=== PATIENT | female | born 1965 | race Caucasian/White ===

== ENCOUNTER 2017-08-28 08:41 | Emergency (ER) | payer SELFPAY ==
[2017-08-28 08:44] VITALS: BP 130/69; PULSE 70; RESP 16; TEMP 97.7; O2SAT 98
[2017-08-28] MEDS ORDERED: DIAZ5TAB PO (08:56)
[2017-08-28] MEDS ORDERED: ATOR40TA16 PO (08:56)
[2017-08-28] MEDS ORDERED: METO50TA PO (08:56)
[2017-08-28] MEDS ORDERED: LEVO50TA4 PO (08:56)
[2017-08-28] MEDS ORDERED: TOPI50TA7 PO (08:56)
[2017-08-28] MEDS ORDERED: TRAZ1TAB14 PO (08:56)
[2017-08-28] MEDS ORDERED: DULO1CAP3 PO (08:56)
[2017-08-28] MEDS ORDERED: METF1000 PO (08:56)
[2017-08-28] MEDS ORDERED: BUTA1CAP5 PO (08:56)
[2017-08-28] MEDS ORDERED: CYCL10TA PO (08:56)
[2017-08-28] MEDS ORDERED: ASPI-516 CHEW (08:56)
[2017-08-28] MEDS ORDERED: LINA290C PO (08:56)
[2017-08-28] MEDS ORDERED: MELO15TA20 PO (09:15)
[2017-08-28] MEDS ORDERED: ROBA500T PO (09:15)
[2017-08-28] MEDS ORDERED: ORPHENADRINE INJ 60 MG/2 ML AMP IM ONE (09:15)
[2017-08-28] MEDS ORDERED: KETOROLAC TROMETHAMINE 60 MG/2 ML (IM) VIAL IM ONE (09:15)
--- NOTE | 2017-08-28 09:15 | PD ---
HPI Chief Complaint: Back/ Neck Pain or Injury Time Seen by Provider: 09:05 Travel History International Travel<30 days: No Contact w/Intl Traveler<30days: No Traveled to known affect area: No History of Present Illness HPI 52-year-old female here with back pain. Patient reports history of chronic low back pain. She recently moved from [place] and has been cleaning her new apartment carrying heavy boxes. She reports pain and "spasming" to her entire back times one day. Pain is worse with movement and palpation of the back and relieved with rest. She denies fever, chills, incontinence, saddle anesthesia, paresthesia or weakness of the extremities. She denies chest pain, shortness of breath, abdominal pain, nausea vomiting diarrhea. She reports this pain is similar to her chronic back pain just more intense. She was previously on oxycodone and cyclobenzaprine for chronic pain control. Since moving to [place] she has not been on her medications for several months. Symptoms severity is moderate. No alleviating factors. PFSH Past Medical History High Cholesterol: Yes Cerebrovascular Accident: Yes Diabetes: Yes Patient Takes Glucophage: Yes Hypertension: Yes Thyroid Disease: Yes ?: Not Tubal Ligation: Yes Past Surgical History Section: Yes Social History Alcohol Use: No Tobacco Use: Yes (1/2PPD) Substance Use: No Allergies-Medications (Allergen,Severity, Reaction): Coded Allergies: No Known Allergies (Unverified , 08/28/17) Reported Meds & Prescriptions Reported Meds & Active Scripts Active Robaxin (Methocarbamol) 500 Mg Tab 500 Mg PO TID Meloxicam 15 Mg Tab 15 Mg PO DAILY Reported Atorvastatin (Atorvastatin Calcium) 40 Mg Tab 40 Mg PO HS Duloxetine DR (Duloxetine HCl) 60 Mg Capdr 60 Mg PO DAILY Mpxjeysqlk-Wxwpwbkhxmfzb-Icdjlczz 50-300-40 Mg Cap 1 Cap PO Q4H PRN Do not exceed 6 capsules/day. Aspirin 81 Mg Chew 81 Mg CHEW DAILY Flexeril (Cyclobenzaprine HCl) 10 Mg Tab 10 Mg PO TID Metformin (Metformin HCl) 1,000 Mg Tab 1,000 Mg PO BIDPC Metoprolol Tartrate 50 Mg Tab 50 Mg PO BID Trazodone (Trazodone HCl) 150 Mg Tablet 150 Mg PO HS Diazepam 5 Mg Tab 5 Mg PO BID PRN Linzess (Linaclotide) 290 Mcg Cap 290 Mcg PO DAILY Levothyroxine (Levothyroxine Sodium) 50 Mcg Tab 50 Mcg PO DAILY Topiramate 50 Mg Tab 100 Mg PO DAILY Review of Systems Except as stated in HPI: all other systems reviewed are Neg General / Constitutional: No: Fever Physical Exam Narrative GENERAL: Alert female in no distress. Patient ambulating in the emergency department with a steady gait. SKIN: Warm and dry. HEAD: Normocephalic. EYES: No scleral icterus. No injection or drainage. NECK: Supple, trachea midline. No JVD or lymphadenopathy. CARDIOVASCULAR: Regular rate and rhythm without murmurs, gallops, or rubs. RESPIRATORY: Breath sounds equal bilaterally. No accessory muscle use. GASTROINTESTINAL: Abdomen soft, non-tender, nondistended. MUSCULOSKELETAL: No cyanosis, or edema. Normal strength and sensation of the lower extremities. Dorsiflex and plantarflex intact. 2+ dorsal pedis pulse. BACK: Tenderness to the thoracic and lumbar paraspinous musculature. No point tenderness of the midline spine. Without obvious deformity. No CVA tenderness. Data Data Last Documented VS Vital Signs Date Time Temp Pulse Resp B/P (MAP) Pulse Ox O2 Delivery O2 Flow Rate FiO2 08/28/17 09:26 08/28/17 08:44 97.7 70 16 98 Room Air Orders Orders Ed Discharge Order (08/28/17 09:11) Ketorolac Inj (Toradol Inj) (08/28/17 09:15) Orphenadrine Inj (Norflex Inj) (08/28/17 09:15) MDM Medical Decision Making Medical Screen Exam Complete: Yes Emergency Medical Condition: Yes Differential Diagnosis acute on chronic back pain, strain/sprain, unlikely spine fracture Narrative Course 52 year old female here with back pain after cleaning her house. She has a history of chronic back pain. On exam she has tenderness to the paraspinous musculature of the back. No point tenderness of the midline spine. Patient was given a shot of Toradol and Norflex. She reports symptom improvement after medications. Discharged home with NSAIDs and muscle relaxers. Return precautions were discussed. Diagnosis Primary Impression: Back pain Qualified Codes: M54.9 - Dorsalgia, unspecified Referrals: Primary Care Physician Scripts Methocarbamol (Robaxin) 500 Mg Tab 500 MG PO TID for Muscle Spasm, #15 TAB 0 Refills Prov: Maddie Rose 08/28/17 Meloxicam (Meloxicam) 15 Mg Tab 15 MG PO DAILY for Arthritis Pain, #30 TAB 0 Refills Prov: Maddie Rose 08/28/17 Disposition: 01 DISCHARGE HOME Condition: Stable Maddie Rose Aug 28, 2017 09:15
== END 2017-08-28 09:40 | disposition home or self-care (01) ==
LOC: PHEFT 08:41
DX: M54.5 Low back pain (principal); G89.29 Other chronic pain; E11.9 Type 2 diabetes mellitus without complications; E78.00 Pure hypercholesterolemia, unspecified; I10 Essential (primary) hypertension; F17.200 Nicotine dependence, unspecified, uncomplicated; Z79.84 Long term (current) use of oral hypoglycemic drugs
CPT/HCPCS: 96372; 99284; J1885; J2360

== ENCOUNTER 2017-09-07 13:30 | Emergency (ER) | payer SELFPAY ==
[~2017-09-07 13:30] MED LIST: ASPI-516 CHEW; ATOR40TA16 PO; BUTA1CAP5 PO; CYCL10TA PO; DIAZ5TAB PO; DULO1CAP3 PO; LEVO50TA4 PO; LINA290C PO; MELO15TA20 PO; METF1000 PO; METO50TA PO; ROBA500T PO; TOPI50TA7 PO; TRAZ1TAB14 PO
[2017-09-07 13:36] VITALS: BP 143/79; PULSE 72; RESP 22; TEMP 97.6; O2SAT 99
[2017-09-07] MEDS ORDERED: MELO15TA20 PO (14:33)
[2017-09-07] MEDS ORDERED: ROBA500T PO (14:33)
--- NOTE | 2017-09-07 14:33 | PD ---
HPI Chief Complaint: Back/ Neck Pain or Injury Time Seen by Provider: 14:31 Travel History International Travel<30 days: No Contact w/Intl Traveler<30days: No Traveled to known affect area: No History of Present Illness HPI 8-year-old female here with low back pain. Patient has history of chronic low back pain I specific injury or trauma. She reports she has been doing heavy lifting and cleaning in her new house for the last several weeks. She was previously in pain management for chronic low back pain has been off of her oxycodone since she moved to [place]. She denies fever, incontinence, saddle anesthesia, paresthesia or weakness of the extremities. No history of IV drug abuse. Symptoms are worse with movement and relieved with rest. PFSH Past Medical History High Cholesterol: Yes Cerebrovascular Accident: Yes (TIA x 2, CVA x 1) Diabetes: Yes Patient Takes Glucophage: No Hypertension: Yes Thyroid Disease: Yes Tetanus Vaccination: > 5 Years Influenza Vaccination: No ?: Not LMP: NOT FOR 2 YEARS Tubal Ligation: Yes Past Surgical History Section: Yes (x 3) Social History Alcohol Use: No Tobacco Use: Yes (1/2 PPD) Substance Use: No Allergies-Medications (Allergen,Severity, Reaction): Coded Allergies: No Known Allergies (Unverified , 09/07/17) Reported Meds & Prescriptions Reported Meds & Active Scripts Active Robaxin (Methocarbamol) 500 Mg Tab 500 Mg PO TID Meloxicam 15 Mg Tab 15 Mg PO DAILY Reported Atorvastatin (Atorvastatin Calcium) 40 Mg Tab 40 Mg PO HS Duloxetine DR (Duloxetine HCl) 60 Mg Capdr 60 Mg PO DAILY Ssmldyrmgy-Jtvilvhsrmnxe-Sxvmghup 50-300-40 Mg Cap 1 Cap PO Q4H PRN Do not exceed 6 capsules/day. Aspirin 81 Mg Chew 81 Mg CHEW DAILY Flexeril (Cyclobenzaprine HCl) 10 Mg Tab 10 Mg PO TID Metformin (Metformin HCl) 1,000 Mg Tab 1,000 Mg PO BIDPC Metoprolol Tartrate 50 Mg Tab 50 Mg PO BID Trazodone (Trazodone HCl) 150 Mg Tablet 150 Mg PO HS Diazepam 5 Mg Tab 5 Mg PO BID PRN Linzess (Linaclotide) 290 Mcg Cap 290 Mcg PO DAILY Levothyroxine (Levothyroxine Sodium) 50 Mcg Tab 50 Mcg PO DAILY Topiramate 50 Mg Tab 100 Mg PO DAILY Review of Systems Except as stated in HPI: all other systems reviewed are Neg General / Constitutional: No: Fever Physical Exam Narrative GENERAL: Alert female well-appearing. SKIN: Warm and dry. HEAD: Normocephalic. EYES: No injection or drainage. NECK: Supple, trachea midline. No cervical midline tenderness. CARDIOVASCULAR: Regular rate and rhythm without murmurs, gallops, or rubs. RESPIRATORY: Breath sounds equal bilaterally. No accessory muscle use. GASTROINTESTINAL: Abdomen soft, non-tender, nondistended. MUSCULOSKELETAL: No cyanosis, or edema. Normal strength and sensation in lower extremities. BACK: Generalized tenderness in lumbar paraspinous musculature. Without obvious deformity. No CVA tenderness. Data Data Last Documented VS Vital Signs Date Time Temp Pulse Resp B/P (MAP) Pulse Ox O2 Delivery O2 Flow Rate FiO2 09/07/17 13:36 97.6 72 22 143/79 (100) 99 Orders Orders Ketorolac Inj (Toradol Inj) (09/07/17 14:45) Orphenadrine Inj (Norflex Inj) (09/07/17 14:45) Ed Discharge Order (09/07/17 14:52) MDM Medical Decision Making Medical Screen Exam Complete: Yes Emergency Medical Condition: Yes Differential Diagnosis Acute on chronic back pain, strain/sprain, unlikely spinal fracture Narrative Course 52-year-old female here with acute on chronic low back pain. She is a normal neurologic exam. She'll be given a shot of Toradol and Norflex and instructed to take NSAIDs and muscle relaxers as needed Diagnosis Primary Impression: Back pain Qualified Codes: M54.5 - Low back pain Referrals: [facility] Scripts Methocarbamol (Robaxin) 500 Mg Tab 500 MG PO TID for Muscle Spasm, #15 TAB 0 Refills Prov: Maddie Rose 09/07/17 Meloxicam (Meloxicam) 15 Mg Tab 15 MG PO DAILY for Arthritis Pain, #30 TAB 0 Refills Prov: Maddie Rose 09/07/17 Disposition: 01 DISCHARGE HOME Condition: Stable Maddie Rose Sep 07, 2017 14:33
[2017-09-07] MEDS ORDERED: ORPHENADRINE INJ 60 MG/2 ML AMP IM ONE (14:45)
[2017-09-07] MEDS ORDERED: KETOROLAC TROMETHAMINE 60 MG/2 ML (IM) VIAL IM ONE (14:45)
== END 2017-09-07 14:58 | disposition home or self-care (01) ==
LOC: PHEFT 13:30
DX: M54.5 Low back pain (principal); G89.29 Other chronic pain; F17.200 Nicotine dependence, unspecified, uncomplicated; E07.9 Disorder of thyroid, unspecified; E11.9 Type 2 diabetes mellitus without complications; E78.00 Pure hypercholesterolemia, unspecified; I10 Essential (primary) hypertension; Z79.84 Long term (current) use of oral hypoglycemic drugs
CPT/HCPCS: 96372; 99284; J1885; J2360

== ENCOUNTER 2017-10-28 18:47 | Emergency (ER) | payer BC ==
--- NOTE | 2017-10-28 18:54 | PD ---
HPI Chief Complaint: Numbness/Tingling Time Seen by Provider: 18:53 Travel History International Travel<30 days: No Contact w/Intl Traveler<30days: No Traveled to known affect area: No History of Present Illness HPI 52-year-old female came to the emergency room with history of lower back pain that started around 3 PM. Patient has history of chronic low back pain. At around 5 PM she started having some radiation of the pain to the right lower extremity and some numbness. Followed by pain and numbness of her right upper extremity. Patient says that currently she feels the numbness. She has history of TIA and CVA and has received TPA in 2017. She is from [place] and all this was done in [place]. She recently moved to the area last July and is trying to find a sales operations specialist. Vital signs are stable. She continues to smoke. No history of any weakness of the speech. Patient was able to ambulate. PFSH Past Medical History Narrative Medical List of her past medical, surgical, social and family history is reviewed from the nursing note. High Cholesterol: Yes Cerebrovascular Accident: Yes (TIA x 2, CVA x 1) Diabetes: Yes Hypertension: Yes Thyroid Disease: Yes Tubal Ligation: Yes Past Surgical History Section: Yes (x 3) Social History Alcohol Use: No Tobacco Use: Yes (1/2 PPD) Substance Use: No Allergies-Medications (Allergen,Severity, Reaction): Coded Allergies: No Known Allergies (Unverified , 10/28/17) Comments No known drug allergies. Reported Meds & Prescriptions Reported Meds & Active Scripts Active Reported Atorvastatin (Atorvastatin Calcium) 40 Mg Tab 40 Mg PO HS Duloxetine DR (Duloxetine HCl) 60 Mg Capdr 60 Mg PO DAILY Utepjzqbqa-Drjppqwxxnlsg-Jkqqqinr 50-300-40 Mg Cap 1 Cap PO Q4H PRN Do not exceed 6 capsules/day. Aspirin 81 Mg Chew 81 Mg CHEW DAILY Flexeril (Cyclobenzaprine HCl) 10 Mg Tab 10 Mg PO TID Metformin (Metformin HCl) 1,000 Mg Tab 1,000 Mg PO BIDPC Metoprolol Tartrate 50 Mg Tab 50 Mg PO BID Trazodone (Trazodone HCl) 150 Mg Tablet 150 Mg PO HS Diazepam 5 Mg Tab 5 Mg PO BID PRN Linzess (Linaclotide) 290 Mcg Cap 290 Mcg PO DAILY Levothyroxine (Levothyroxine Sodium) 50 Mcg Tab 50 Mcg PO DAILY Topiramate 50 Mg Tab 100 Mg PO DAILY Narrative Medication List of her home medications reviewed from the nursing note. Review of Systems Except as stated in HPI: all other systems reviewed are Neg Neurologic: Positive: Paresthesia Physical Exam Narrative GENERAL: Awake, alert, no obvious distress SKIN: Focused skin assessment warm/dry. HEAD: Atraumatic. Normocephalic. EYES: Pupils equal and round. No scleral icterus. No injection or drainage. ENT: No nasal bleeding or discharge. Mucous membranes pink and moist. NECK: Trachea midline. No JVD. CARDIOVASCULAR: Regular rate and rhythm. No murmur appreciated. RESPIRATORY: No accessory muscle use. Clear to auscultation. Breath sounds equal bilaterally. GASTROINTESTINAL: Abdomen soft, non-tender, nondistended. Hepatic and splenic margins not palpable. MUSCULOSKELETAL: No obvious deformities. No clubbing. No cyanosis. No edema. NEUROLOGICAL: Awake and alert. No obvious cranial nerve deficits. Motor grossly within normal limits. Normal speech. SLR was positive PSYCHIATRIC: Appropriate mood and affect; insight and judgment normal. Data Data Last Documented VS Vital Signs Date Time Temp Pulse Resp B/P (MAP) Pulse Ox O2 Delivery O2 Flow Rate FiO2 10/28/17 22:09 55 18 166/87 (113) 99 10/28/17 18:55 98.1 Orders Orders Electrocardiogram (10/28/17 19:10) Prothrombin Time / Inr (Pt) (10/28/17 19:10) Complete Blood Count With Diff (10/28/17 19:10) Basic Metabolic Panel (Bmp) (10/28/17 19:10) Drug Screen, Random Urine (10/28/17 19:10) Troponin I (10/28/17 19:10) Urinalysis - C+S If Indicated (10/28/17 19:10) Ct Brain W/O Iv Contrast(Rout) (10/28/17 19:10) Chest, Single Ap (10/28/17 19:10) Ecg Monitoring (10/28/17 19:10) Iv Access Insert/Monitor (10/28/17 19:10) Oximetry (10/28/17 19:10) Sodium Chloride 0.9% Flush (Ns Flush) (10/28/17 19:15) Ct Cerv Spine W/O Contrast (10/28/17 ) Ct Lumb Spine W/O Contrast (10/28/17 ) Ketorolac Inj (Toradol Inj) (10/28/17 20:45) Acetamin-Hydrocod 325-5 Mg ([place] 5-325 (10/28/17 20:45) Orphenadrine Inj (Norflex Inj) (10/28/17 20:45) Ed Discharge Order (10/28/17 21:26) Labs Laboratory Tests Test 10/28/17 20:00 10/28/17 20:20 White Blood Count 9.8 TH/MM3 Red Blood Count 4.38 MIL/MM3 Hemoglobin 13.4 GM/DL Hematocrit 40.4 % Mean Corpuscular Volume 92.3 FL Mean Corpuscular Hemoglobin 30.5 PG Mean Corpuscular Hemoglobin Concent 33.1 % Red Cell Distribution Width 13.8 % Platelet Count 233 TH/MM3 Mean Platelet Volume 8.0 FL Neutrophils (%) (Auto) 55.3 % Lymphocytes (%) (Auto) 38.7 % Monocytes (%) (Auto) 4.0 % Eosinophils (%) (Auto) 0.9 % Basophils (%) (Auto) 1.1 % Neutrophils # (Auto) 5.4 TH/MM3 Lymphocytes # (Auto) 3.8 TH/MM3 Monocytes # (Auto) 0.4 TH/MM3 Eosinophils # (Auto) 0.1 TH/MM3 Basophils # (Auto) 0.1 TH/MM3 CBC Comment DIFF FINAL Differential Comment Prothrombin Time 10.2 SEC Prothromb Time International Ratio 1.0 RATIO Blood Urea Nitrogen 9 MG/DL Creatinine 0.59 MG/DL Random Glucose 86 MG/DL Calcium Level 8.7 MG/DL Sodium Level 135 MEQ/L Potassium Level 3.6 MEQ/L Chloride Level 102 MEQ/L Carbon Dioxide Level 25.5 MEQ/L Anion Gap 8 MEQ/L Estimat Glomerular Filtration Rate 108 ML/MIN Troponin I LESS THAN 0.02 NG/ML Urine Color YELLOW Urine Turbidity CLEAR Urine pH 7.0 Urine Specific [place] 1.010 Urine Protein NEG mg/dL Urine Glucose (UA) NEG mg/dL Urine Ketones NEG mg/dL Urine Occult Blood NEG Urine Nitrite NEG Urine Bilirubin NEG Urine Leukocyte Esterase NEG Urine WBC 0-2 /hpf Urine Squamous Epithelial Cells 0-5 /hpf Microscopic Urinalysis Comment CATH-CULT NOT IND Urine Opiates Screen NEG Urine Barbiturates Screen NEG Urine Amphetamines Screen NEG Urine Benzodiazepines Screen POS Urine Cocaine Screen NEG Urine Cannabinoids Screen POS MDM Medical Decision Making Medical Screen Exam Complete: Yes Emergency Medical Condition: Yes Medical Record Reviewed: Yes Interpretation(s) Twelve-lead EKG was reviewed by me. Normal sinus rhythm, normal axis, nonspecific ST-T wave changes, bradycardia. Heart rate of 52 bpm. Differential Diagnosis Cervical radiculopathy, lumbar radiculopathy Narrative Course 7:38 PM awaiting for the blood test and the CAT scans to be done and resulted. Given her symptoms I am quite positive that this is not a stroke or TIA. The associated pain tells me that this could be a radiculopathy. If the test results are negative I intend to discharge this patient home. 8:45 PM CAT scan does not show any significant acute event. There is some disc prolapse and foraminal narrowing at various levels which are mild to moderate. Awaiting for the chemistry to come back. Urine drug was positive for benzo and cannabinoids. Her nurse just told me that she is asking something for pain which I have ordered. Meanwhile patient had gone without telling anybody outside the emergency room with her . She still had her IV in place. I noticed her walking back to her room and there was no problem with her gait. There was no obvious deficit noticed at all. Procedures EKG Prior to Arrival: No Diagnosis Primary Impression: Lumbar radiculopathy Additional Impressions: Cervical radicular pain Paresthesia Marijuana abuse Needs smoking cessation education Referrals: Primary Care Physician 2 days Additional Instructions: Follow-up with primary care physician and get referral for a sales operations specialist. You may require an MRI of the back that can be ordered as an outpatient. Med/Other Pt SpecificInfo: Prescription(s) given Disposition: DISCHARGE HOME Condition: Stable [place] Patricio MD Oct 28, 2017 18:53
[2017-10-28 18:55] VITALS: BP 173/90; PULSE 65; RESP 18; TEMP 98.1; O2SAT 98
[2017-10-28] MEDS ORDERED: SODIUM CHLORIDE 0.9% FLUSH 10 ML FLUSH IVF PRN (19:15)
--- NOTE | 2017-10-28 19:36 | RADRPT ---
EXAM DATE/TIME: 10/28/2017 19:22 [facility] COMPARISON: No previous studies available for comparison. INDICATIONS : Right sided numbness. Evaluate for cerebrovascular accident. RADIATION DOSE: 54.34 CTDIvol (mGy) MEDICAL HISTORY : Cerebrovascular disease. Diabetes mellitus type 2. Hypertension. SURGICAL HISTORY : Tubal ligation. section. ENCOUNTER: Initial ACUITY: 1 day PAIN SCALE: 0/10 LOCATION: cranial TECHNIQUE: Multiple contiguous axial images were obtained of the head. Using automated exposure control and adj ustment of the mA and/or kV according to patient size, radiation dose was kept as low as reasonably a chievable to obtain optimal diagnostic quality images. DICOM format image data is available electro nically for review and comparison. FINDINGS: CEREBRUM: The ventricles are normal for age. No evidence of midline shift, mass lesion, hemorrhage or acute in farction. No extra-axial fluid collections are seen. There is an old lacunar infarct involving the r ight thalamus. Mild periventricular and subcortical white matter small vessel ischemic changes are no ralph bilaterally. POSTERIOR FOSSA: The cerebellum and brainstem are intact. The 4th ventricle is midline. The cerebellopontine angle i s unremarkable. EXTRACRANIAL: The visualized portion of the orbits is intact. SKULL: The calvaria is intact. No evidence of skull fracture. CONCLUSION: 1. Old lacunar infarct involving the right thalamus. 2. Mild periventricular and subcortical white matter small vessel ischemic changes bilaterally. 3. No acute infarct, acute hemorrhage, mass effect or extra-axial fluid collections. Stephen Yu MD on October 28, 2017 at 19:32 Board Certified Radiologist. This report was verified electronically.
--- NOTE | 2017-10-28 19:51 | RADRPT ---
EXAM DATE/TIME: 10/28/2017 19:25 [facility] COMPARISON: No previous studies available for comparison. INDICATIONS : Right side numbness. Low back pain. RADIATION DOSE: 27.45 CTDIvol (mGy) MEDICAL HISTORY : Cerebrovascular disease. Diabetes mellitus type 2. Hypertension. SURGICAL HISTORY : Tubal ligation. section. ENCOUNTER: Initial ACUITY: 1 day PAIN SCALE: 6/10 LOCATION: Lumbar spine. TECHNIQUE: Volumetric scanning of the lumbar spine was performed. Multiplanar reconstructions in the sagittal, coronal and oblique axial planes were performed. Using automated exposure control and adjustment of the mA and/or kV according to patient size, radiation dose was kept as low as reasonably achievable t o obtain optimal diagnostic quality images. DICOM format image data is available electronically for review and comparison. FINDINGS: VERTEBRAE: Normal vertebral body height. ALIGNMENT: No evidence of subluxation. T12-L1: The thecal sac has a normal diameter. No evidence of disc bulge or protrusion. The neural foramina are patent bilaterally. L1-L2: The thecal sac has a normal diameter. No evidence of disc bulge or protrusion. The neural foramina are patent bilaterally. L2-L3: The thecal sac has a normal diameter. No evidence of disc bulge or protrusion. The neural foramina are patent bilaterally. L3-L4: The thecal sac has a normal diameter. No evidence of disc bulge or protrusion. The neural foramina are patent bilaterally. Mild facet joint hypertrophy and ligamentous laxity is noted. L4-L5: Minimal diffuse disc bulge, facet joint hypertrophy and ligamentous laxity are noted resulting in mil d bilateral foraminal narrowing. No significant spinal stenosis is noted. No focal disc herniation is noted. L5-S1: Minimal diffuse disc osteophyte complex is noted and is slightly asymmetric to the right. Minimal rig ht neuroforaminal narrowing is noted. The left neural foramen is patent. No spinal stenosis is noted. CONCLUSION: 1. No acute compression fracture, spondylolisthesis or spondylolysis. 2. Mild bilateral foraminal narrowing at L4-5 and right neural foraminal narrowing at L5-S1. 3. Mild diffuse disc bulge at L4-5. 4. Mild facet joint hypertrophy bilaterally at L3-4 and L4-5. Stephen Yu MD on October 28, 2017 at 19:42 Board Certified Radiologist. This report was verified electronically.
--- NOTE | 2017-10-28 19:55 | RADRPT ---
EXAM DATE/TIME: 10/28/2017 19:22 [facility] COMPARISON: No previous studies available for comparison. INDICATIONS : Right sided pain. Radiculopathy. RADIATION DOSE: 25.33 CTDIvol (mGy) MEDICAL HISTORY : Diabetes mellitus type 2. Cerebrovascular disease. Hypertension. SURGICAL HISTORY : Tubal ligation. section. ENCOUNTER: Initial ACUITY: 1 day PAIN SCALE: 6/10 LOCATION: neck TECHNIQUE: Volumetric scanning of the cervical spine was performed. Multiplanar reconstructions in the sagittal, coronal and oblique axial planes were performed. Using automated exposure control and adjustment o f the mA and/or kV according to patient size, radiation dose was kept as low as reasonably achievable to obtain optimal diagnostic quality images. DICOM format image data is available electronically f or review and comparison. FINDINGS: There is no acute fracture or prevertebral soft tissue swelling. The bony relationship and alignment between C1 and C2 is well maintained. Mild scoliosis of the cervical spine is noted. Cervical spondyl osis is noted at C5-6 and C6-7. No spinal stenosis or focal disc herniation is noted. No significant neural foraminal narrowing is noted. C2-C3: The bony spinal canal is normal in size. No evidence of disc bulge or herniation. The neural forami na are bilaterally patent. C3-C4: The bony spinal canal is normal in size. No evidence of disc bulge or herniation. The neural forami na are bilaterally patent. C4-C5: The bony spinal canal is normal in size. No evidence of disc bulge or herniation. The neural forami na are bilaterally patent. C5-C6: The bony spinal canal is normal in size. No evidence of disc bulge or herniation. The neural forami na are bilaterally patent. C6-C7: The bony spinal canal is normal in size. No evidence of disc bulge or herniation. The neural forami na are bilaterally patent. C7-T1: The bony spinal canal is normal in size. No evidence of disc bulge or herniation. The neural forami na are bilaterally patent. CONCLUSION: 1. No acute fracture or prevertebral soft tissue swelling. 2. No evidence of spinal stenosis, focal disc herniation or neuroforaminal narrowing. 3. Mild cervical spondylosis at C5-6 and C6-7. 4. Mild scoliosis of the cervical spine Stephen Yu MD on October 28, 2017 at 19:48 Board Certified Radiologist. This report was verified electronically.
[2017-10-28 20:12] VITALS: BP 176/99; PULSE 51; RESP 18; O2SAT 97
[2017-10-28 20:13] LABS: AUTOMATED NEUTROPHIL # 5.4 TH/MM3 (1.8-7.7); BASOPHIL # 0.1 TH/MM3 (0-0.2); BASOPHIL % 1.1 % (0.0-2.0); EOSINOPHIL # 0.1 TH/MM3 (0-0.4); EOSINOPHIL % 0.9 % (0.0-4.0); HEMATOCRIT 40.4 % (35.0-46.0); HEMOGLOBIN 13.4 GM/DL (11.6-15.3); LYMPH % 38.7 % (9.0-44.0); LYMPHOCYTE # 3.8 TH/MM3 (1.0-4.8); MEAN CELL VOLUME 92.3 FL (80.0-100.0); MEAN CORPUSCULAR HEMOGLOBIN 30.5 PG (27.0-34.0); MEAN CORPUSCULAR HGB CONC 33.1 % (32.0-36.0); MONOCYTE # 0.4 TH/MM3 (0-0.9); NEUT % 55.3 % (16.0-70.0); PLATELET COUNT 233 TH/MM3 (150-450); RED BLOOD COUNT 4.38 MIL/MM3 (4.00-5.30); RED CELL DISTRIBUTION WIDTH 13.8 % (11.6-17.2); WHITE BLOOD COUNT 9.8 TH/MM3 (4.0-11.0)
[2017-10-28 20:26] LABS: PROTHROMBIN TIME - PATIENT 10.2 SEC (9.8-11.6)
[2017-10-28 20:31] LABS: BILIRUBIN, URINE NEG (NEG); BLOOD, URINE NEG (NEG); GLUCOSE,URINE NEG (NEG); KETONE, URINE NEG (NEG); NITRITE,URINE NEG (NEG); URINE LEUKOCYTE ESTERASE NEG (NEG)
[2017-10-28 20:39] LABS: SQUAMOUS EPITHELIAL CELL URINE 0-5 /hpf (0-5); URINE COLOR YELLOW (YELLW/STRAW); WBC, URINE 0-2 /hpf (0-5)
[2017-10-28] MEDS ORDERED: ACETAMINOPHEN/HYDROcodone 325 MG/5 MG TAB PO ONE (20:45)
[2017-10-28] MEDS ORDERED: KETOROLAC TROMETHAMINE 30 MG/ML (IVP) VIAL IV PUSH ONE (20:45)
[2017-10-28] MEDS ORDERED: ORPHENADRINE INJ 60 MG/2 ML AMP IM ONE (20:45)
[2017-10-28 20:48] LABS: CHLORIDE 102 MEQ/L (98-107); SODIUM (NA) 135 MEQ/L (136-145)
[2017-10-28 20:50] LABS: CALCIUM 8.7 MG/DL (8.5-10.1)
[2017-10-28 20:51] LABS: BICARBONATE 25.5 MEQ/L (21.0-32.0); BLOOD UREA NITROGEN 9 MG/DL (7-18); GLUCOSE,RANDOM 86 MG/DL (74-106)
[2017-10-28 20:54] LABS: CREATININE 0.59 MG/DL (0.50-1.00); GLOMERULAR FILTRATION RATE 108 ML/MIN (>89)
[2017-10-28 20:59] LABS: TROPONIN I LESS THAN 0.02 NG/ML (0.02-0.05)
--- NOTE | 2017-10-28 21:16 | RADRPT ---
EXAM DATE/TIME: 10/28/2017 20:29 [facility] COMPARISON: No previous studies available for comparison. INDICATIONS : Right side numbness and right side chest pain. MEDICAL HISTORY : Cerebrovascular disease. Diabetes mellitus type 2. Hypertension. SURGICAL HISTORY : Tubal ligation. section. ENCOUNTER: Initial ACUITY: 1 day PAIN SCORE: 9/10 LOCATION: Right chest FINDINGS: A single view of the chest demonstrates the lungs to be symmetrically aerated without evidence of mas s, infiltrate or effusion. The cardiomediastinal contours are unremarkable. Mild scoliosis and degen erative changes of the thoracolumbar spine are noted. CONCLUSION: No acute disease. Stephen Yu MD on October 28, 2017 at 21:13 Board Certified Radiologist. This report was verified electronically.
[2017-10-28 22:09] VITALS: BP 166/87
--- NOTE | 2017-10-29 19:03 | EKG ---
Date Performed: 10/28/2017 Time Performed: 19:37:10 PTAGE: 52 years EKG: SINUS BRADYCARDIA POSSIBLE RIGHT VENTRICULAR CONDUCTION DELAY BORDERLINE ECG NO PREVIOUS TRACING DOCTOR: Jesús Dotson Interpretating Date/Time 10/29/2017 19:02:25
== END 2017-10-28 22:12 | disposition home or self-care (01) ==
LOC: PHED 18:47
DX: R20.0 Anesthesia of skin (principal); M54.16 Radiculopathy, lumbar region; M54.12 Radiculopathy, cervical region; F12.10 Cannabis abuse, uncomplicated; R00.1 Bradycardia, unspecified; E11.9 Type 2 diabetes mellitus without complications; E78.00 Pure hypercholesterolemia, unspecified; I10 Essential (primary) hypertension; G89.29 Other chronic pain; F17.210 Nicotine dependence, cigarettes, uncomplicated; Z86.73 Personal history of transient ischemic attack (TIA), and cerebral infarction without residual deficits
CPT/HCPCS: 70450; 71045; 72125; 72131; 80048; 80307; 81001; 84484; 85025; 85610; 93005; 96372; 96374; 99285; J1885; J2360